=== PATIENT | male | born 1965 | race Caucasian/White ===

== ENCOUNTER 2019-12-27 10:35 | Emergency (ER) | payer MEDICAID ==
[~2019-12-27] VITALS: Ht 177.8 cm; Wt 99.7 kg
[2019-12-27 11:07] VITALS: BP 129/89
== END 2019-12-27 12:21 | disposition home or self-care (01) ==
LOC: ED 11:45
DX: J06.9 Acute upper respiratory infection, unspecified (principal); H66.92 Otitis media, unspecified, left ear; Z76.0 Encounter for issue of repeat prescription; E11.9 Type 2 diabetes mellitus without complications; Z87.891 Personal history of nicotine dependence
CPT/HCPCS: 71046; 82962; 99283

== ENCOUNTER 2020-02-04 09:07 | Emergency (ER) | payer MEDICAID ==
[~2020-02-04] VITALS: Ht 177.8 cm; Wt 100.3 kg
[2020-02-04 09:10] VITALS: BP 139/91
== END 2020-02-04 10:09 | disposition home or self-care (01) ==
LOC: ED 09:28
DX: E11.9 Type 2 diabetes mellitus without complications (principal); I10 Essential (primary) hypertension; Z76.0 Encounter for issue of repeat prescription
CPT/HCPCS: 99281

== ENCOUNTER 2020-04-10 15:38 | Emergency (ER) | payer MEDICAID ==
[~2020-04-10] VITALS: Ht 177.8 cm; Wt 96.0 kg
[2020-04-10 15:40] VITALS: BP 161/95
--- NOTE | 2020-04-10 15:54 | NUR ---
PT STATES HE IS HERE TO GET A METFORMIN RX. PT ATTEMPTED TO CONTACT HIS MD IN [place] BUT WAS UNABLE TO.
== END 2020-04-10 17:38 | disposition home or self-care (01) ==
LOC: ED 17:05
DX: E11.9 Type 2 diabetes mellitus without complications (principal); Z76.0 Encounter for issue of repeat prescription
CPT/HCPCS: 99281

== ENCOUNTER 2020-04-25 14:17 | Emergency (ER) | payer MEDICAID ==
[~2020-04-25] VITALS: Ht 177.8 cm; Wt 102.5 kg
[2020-04-25 14:19] VITALS: BP 140/92
--- NOTE | 2020-04-25 15:32 | NUR ---
Patient given discharge instructions and they have confirmed that they understand the instructions. Patient ambulatory with steady gait.
== END 2020-04-25 15:33 | disposition home or self-care (01) ==
LOC: ED 15:23
DX: E11.9 Type 2 diabetes mellitus without complications (principal); I10 Essential (primary) hypertension; Z76.0 Encounter for issue of repeat prescription
CPT/HCPCS: 99281

== ENCOUNTER 2020-05-31 21:17 | Emergency (ER) | payer MEDICAID ==
[~2020-05-31] VITALS: Ht 177.8 cm; Wt 96.7 kg
[2020-05-31 21:20] VITALS: BP 178/130
--- NOTE | 2020-05-31 21:40 | NUR ---
PT REFUSING TO CHANGE INTO GOWN OR HAVE BLOOD DRAWN UNTIL HE SPEAKS WITH MD. FREDDY JOSEPH SAW PT IN TRIAGE. ERP NOTIFIED, WILL GO IN TO SPEAK WITH PT. Addendum: 05/31/20 at 2339 by MARICRUZON PT REFUSING TO ANSWER QUESTIONS REGARDING SI OR THE REASON WHY HE IS IN THE ED. KEEPS REQUESTING TO TALK TO A PSYCHIATRIST.
--- NOTE | 2020-05-31 21:50 | NUR ---
INFORMED PT OF NEED FOR URINE SAMPLE. PT STATES HE CAN'T VOID. WATER PROVIDED.
--- NOTE | 2020-05-31 21:54 | NUR ---
TELEPSYCH CALLED AND REQUEST FOR CONSULT INITIATED. BOT [id number] PLACED OUTSIDE OF PATIENTS ROOM.
--- NOTE | 2020-05-31 23:05 | NUR ---
PT DOING TELE PSYCH CONFERENCE AT THIS TIME, COMPUTER IN ROOM. PT CALM, ANSWERING QUESTIONS. THIS RN SPOKE WITH PSYCHIATRIST ABOUT PT'S REASON FOR COMING TO ED.
--- NOTE | 2020-05-31 23:15 | NUR ---
REPORTED TO CADY CASTANEDA.
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
== END 2020-06-01 02:09 | disposition home or self-care (01) ==
LOC: ED 06-01 00:49
DX: F20.0 Paranoid schizophrenia (principal); I10 Essential (primary) hypertension; E11.9 Type 2 diabetes mellitus without complications; Z91.14 Patient's other noncompliance with medication regimen; Z87.891 Personal history of nicotine dependence
CPT/HCPCS: 99284

== ENCOUNTER 2020-06-01 15:12 | Emergency (ER) | payer MEDICAID ==
[~2020-06-01] VITALS: Ht 177.8 cm; Wt 98.0 kg
[2020-06-01 16:02] LABS: BASOPHILS % (AUTO) 0 % (0-1); EOSINOPHILS # (AUTO) 0.01 x10^3/uL (0-0.4); EOSINOPHILS % (AUTO) 0 % (1-7); LYMPHOCYTES # (AUTO) 1.68 x10^3/uL (1-3.4); LYMPHOCYTES % (AUTO) 12 % (22-44); MD NO; MEAN CORPUSCULAR HEMOGLOBIN 29.8 pg (27.5-34.5); MEAN PLATELET VOLUME 8.5 fL (7.4-10.4); MONOCYTES # (AUTO) 1.24 x10^3/uL (0.2-0.8); MONOCYTES % (AUTO) 9 % (2-9); NEUTROPHILS # (AUTO) 10.76 x10^3/uL (1.8-6.8); NEUTROPHILS % (AUTO) 79 % (42-75); PLATELET COUNT 314 x10^3/uL (130-400); RED BLOOD COUNT 5.36 x10^6/uL (4.38-5.82); RED CELL DISTRIBUTION WIDTH 13.5 % (9.4-14.8)
[2020-06-01 16:12] LABS: ALBUMIN 3.8 g/dL (3.4-5.0); ANION GAP 13 mmol/L (5-15); CALCIUM 8.5 mg/dL (8.5-10.1); CHLORIDE 105 mmol/L (98-107)
[2020-06-01 16:16] LABS: ALANINE AMINOTRANSFERASE 35 U/L (12-78); ALKALINE PHOSPHATASE 83 U/L (45-117); BILIRUBIN,TOTAL 1.7 mg/dL (0.2-1.0); CREATININE 2.53 mg/dL (0.7-1.3); TOTAL PROTEIN 8.9 g/dL (6.4-8.2)
[2020-06-01 16:21] LABS: SALICYLATE LEVEL < 1.7 mg/dL (2.8-20.0)
--- NOTE | 2020-06-01 16:38 | NUR ---
toni in room for eval. sitter requested. pt v vague about suicidal sx and physical sx. "i just don't feel right''. no spec plan. sts trouble peeing sometimes. denies kidney problem hx. tachy 110s. st on monitor. call jain in reach. as
--- NOTE | 2020-06-01 16:45 | NUR ---
Q15 MIN CHECKS IN PLACE, SAFETY MAINTAINED.
--- NOTE | 2020-06-01 17:22 | NUR ---
RESTING IN BED NAD.
--- NOTE | 2020-06-01 18:00 | NUR ---
RESTING IN BED VSS NAD.
--- NOTE | 2020-06-01 19:03 | NUR ---
TELEPSYCH ATTEMPT X1. PT NAD.
--- NOTE | 2020-06-01 19:29 | NUR ---
still attempting telepsych. pt compliatn. as
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
--- NOTE | 2020-06-01 20:38 | NUR ---
sitter in place. pt moved to room 38. safety maintainted. as
--- NOTE | 2020-06-01 20:46 | NUR ---
report to sadiq bee. as
--- NOTE | 2020-06-01 20:59 | NUR ---
patient is resting in room at this time,nad,pateint remains calm amd cooperative. sitter outside of room, will continue to monitor
--- NOTE | 2020-06-02 00:36 | NUR ---
PATIENT IS SLEEPING IN ROOM, HE REMAINS CALM AND COOPERATIVE
--- NOTE | 2020-06-02 01:25 | NUR ---
PSYCH PACKET TO: [facility], [facility], [facility], [facility], [facility].
--- NOTE | 2020-06-02 01:46 | NUR ---
PER NAMITA ON U, WILL NOT ACCEPT PT D/T INSURANCE
--- NOTE | 2020-06-02 02:15 | NUR ---
TASK RN: ELE FROM [facility] CALLED AND STATED THAT IF WE CAN LOWER THE SUGAR AND PROVIDE RESULTS FOR UA AND DOA, THEY WILL ACCEPT PT.
--- NOTE | 2020-06-02 02:23 | NUR ---
TASK RN: ELE FROM [facility] ALSO REQUESTING A HEMAGLOBIN A1C. PER RAIN YAN TO PUT IN ORDER FOR A1C. PRIMARY RN TO CALL ELE @ [phone] WITH RESULTS
--- NOTE | 2020-06-02 03:13 | NUR ---
PATIENT STEADILY AMBULATED TO THE BATHROOM AND BACK AND PROVIDED RN A URINE SAMPLE
[2020-06-02 03:18] LABS: MICROSCOPIC AUTO
[2020-06-02 03:25] LABS: AMPHETAMINE SCREEN, URINE Positive (Negative); BARBITURATE SCREEN, URINE Negative (Negative); BENZODIAZEPINE SCREEN, URINE Negative (Negative); CANNABINOID SCREEN, URINE Negative (Negative); COCAINE SCREEN, URINE Negative (Negative); METHADONE SCREEN, URINE Negative (Negative); OPIATE SCREEN, URINE Negative (Negative)
--- NOTE | 2020-06-02 04:41 | NUR ---
PATIENT CONTINUES TO BE SLEEPING ON STRETCHER, NAD, SITTER OUTSIDE OF ROOM, WILL CONTINUE TO MONITOR
--- NOTE | 2020-06-02 05:39 | NUR ---
[facility] ACCEPTED PATIENT FOR 04
[2020-06-02 05:46] VITALS: BP 138/82
--- NOTE | 2020-06-02 06:21 | NUR ---
[facility] ACCEPTED PATIENT TRANSPORT, AND SPOKE WITH JEREMIASSA.
--- NOTE | 2020-06-02 07:12 | NUR ---
REPORT FROM TONYA CARDENAS. TONYA CARDENAS REMOVED PT'S IV IN PREPARATION FOR HIS TRANSPORT TO [facility]. NAD NOTED AT THIS TIME. PT RESTING IN BED WITH EYES CLOSED. SITTER OUTSIDE OF ROOM FOR DIRECT OBSERVATION AND Q15 MIN SAFETY CHECKS.
--- NOTE | 2020-06-02 07:40 | NUR ---
EDUCATION TO PT AND [facility] REGARDING TRANSPORT AND NEED FOR BEHAVIORAL FACILITY TO INSPECT PT BELONGINGS. DECISION BY [facility] TO ALLOW PT TO FULLY DRESS.
== END 2020-06-02 07:47 ==
LOC: ED 17:13
DX: R45.851 Suicidal ideations (principal); F33.9 Major depressive disorder, recurrent, unspecified; F15.10 Other stimulant abuse, uncomplicated; N28.9 Disorder of kidney and ureter, unspecified; E11.9 Type 2 diabetes mellitus without complications; Z87.891 Personal history of nicotine dependence; Z91.14 Patient's other noncompliance with medication regimen
CPT/HCPCS: 36415; 80053; 80307; 81001; 83036; 85025; 99285